=== PATIENT | male | born 1950 | race Caucasian/White ===

== ENCOUNTER 2023-02-08 12:01 | Emergency (ER) | payer MEDICARE, SELFPAY ==
[2023-02-08 12:14] VITALS: BP 160/96; PULSE 93; RESP 20; TEMP 36.7; O2SAT 97
--- NOTE | 2023-02-08 12:23 | ED.SKABFB ---
HPI - Skin/Abscess/Foreign Bdy General Chief complaint: Skin/Abscess/Foreign Body Stated complaint: Rash Back of Lt Leg Time Seen by Provider: 02/08/23 12:23 Source: patient Mode of arrival: ambulatory Limitations: no limitations History of Present Illness HPI narrative: 72-year-old male presents with complaint of dry, itchy area to posterior aspect of left leg. Patient reports has had symptoms for approximately 1 month. Was scratching with his right toe about a month ago and then got a red swollen bump. Has since resolved but continues to have rash. Is concerned for infection. Has not seen his primary care physician or equipment service engineer for this problem. All systems reviewed and negative except as noted above. Related Data Home Medications Medication Instructions Recorded Confirmed levothyroxine 112 mcg tablet mcg 02/08/23 losartan 100 mg tablet mg 02/08/23 meloxicam 7.5 mg tablet mg 02/08/23 omeprazole 40 mg capsule,delayed mg 02/08/23 release rosuvastatin 10 mg tablet mg 02/08/23 tamsulosin 0.4 mg capsule mg PO 02/08/23 Allergies Allergy/AdvReac Type Severity Reaction Status Date / Time No Known Allergies Allergy Verified 01/14/18 08:15 Review of Systems Review of Systems: CONSTITUTIONAL: Denies fever, chills, or sweats. EYES: Denies visual changes, redness, or discharge. ENT: Denies rhinorrhea, congestion, sore throat, or otalgia. CARDIOVASCULAR: Denies chest pain, palpitations, or edema. RESPIRATORY: Denies cough or dyspnea. GASTROINTESTINAL: Denies abdominal pain, nausea, vomiting, or diarrhea. GENITOURINARY: Denies dysuria or hematuria. SKIN: Reports rash and itching left posterior leg.. MUSCULOSKELETAL: Denies back pain, joint pain, or myalgia. NEUROLOGIC: Denies headache, numbness, or weakness. PSYCHIATRIC: Denies anxiety or depression. All other systems reviewed are negative, except as documented in HPI. PMFSH Comments At time of signature, agree with nursing past medical, surgical, social and family history. There is no relevant family history pertinent to the presenting complaint. Exam Narrative: GENERAL: This is a well-nourished, well-developed patient, in no apparent distress. HEAD: normocephalic, atraumatic. EYES: PERRL. Sclera clear/white. Vision is grossly intact. EARS: External ears normal. NOSE: External nose normal NECK: Neck supple, non-tender without lymphadenopathy, masses or thyromegaly. CARDIOVASCULAR: Regular rate and rhythm without murmurs, gallops, or rubs. RESPIRATORY: Clear to auscultation. Breath sounds equal bilaterally. No wheezes, rales, or rhonchi. SKIN: warm, Dry, intact with no suspicious lesions , good texture and turgor. scaly, patchy rash to posterior aspect L ankle and heel. very mild erythema. no warmth, swelling or tenderness on palpation. skin intact, no drainage. no signs of infection. NEURO: awake, alert, and oriented to person, place and time. There were no obvious focal neurologic abnormalities. EXTREMITIES: No joint tenderness, effusion, or edema noted. Course Course Level of Care: Express Care Visit Vital Signs Vital signs: Vital Signs Temperature 36.7 C 02/08/23 12:14 Pulse Rate 93 02/08/23 12:14 Respiratory Rate 20 02/08/23 12:14 Blood Pressure 160/96 H 02/08/23 12:14 Pulse Oximetry 97 02/08/23 12:14 Oxygen Delivery Room Air 02/08/23 12:14 Temperature 36.7 C 02/08/23 12:14 Pulse Rate 93 02/08/23 12:14 Respiratory Rate 20 02/08/23 12:14 Blood Pressure 156/96 H 02/08/23 12:39 Pulse Oximetry 97 02/08/23 12:14 Oxygen Delivery Room Air 02/08/23 12:14 reviewed MDM - Skin/Abscess/Foreign Bdy MDM Narrative Medical decision making narrative: Patient is aware of diagnosis, understands and agrees to treatment plan. Anticipatory guidance given. Patient agrees to follow-up as directed and is aware of reasons to seek care at the emergency department. Portions of this record may have
[2023-02-08 12:39] VITALS: BP 156/96
== END 2023-02-08 12:39 | disposition home or self-care (01) ==
PROVIDERS: Emergency Provider Nurse Practitioner Family
DX: L30.9 Dermatitis, unspecified (principal)
CPT/HCPCS: 99213; G0463

== ENCOUNTER 2024-06-01 18:45 | Emergency (ER) | payer MEDICARE, SELFPAY ==
--- NOTE | 2024-06-01 18:51 | ED.URI ---
HPI - URI/Sore Throat General Chief Complaint: Upper Respiratory Infection Stated Complaint: Cough/Sinus Time Seen by Provider: 06/01/24 18:52 Source: patient Mode of arrival: ambulatory Limitations: no limitations History of Present Illness HPI Narrative: Solomon is a 74-year-old male patient presenting to the clinic today with complaints of productive cough, sore throat, sinus congestion, and runny nose x2 days. He reports that he coughed up some green phlegm today but his nasal drainage is clear. He denies any fever, chills, or body aches. He denies any shortness of breath or chest pain. MD elicited complaint: cough, sore throat, rhinorrhea and nasal congestion Related Data Home Medications Medication Instructions Recorded Confirmed levothyroxine 112 mcg tablet mcg 02/08/23 losartan 100 mg tablet mg 02/08/23 meloxicam 7.5 mg tablet mg 02/08/23 omeprazole 40 mg capsule,delayed mg 02/08/23 release rosuvastatin 10 mg tablet mg 02/08/23 tamsulosin 0.4 mg capsule mg PO 02/08/23 hydrochlorothiazide 12.5 mg tablet 12.5 mg DAILY 06/01/24 06/01/24 Allergies Allergy/AdvReac Type Severity Reaction Status Date / Time No Known Allergies Allergy Verified 06/01/24 19:01 Review of Systems Review of Systems: Pertinent positives per HPI. Patient denies any fever, chills, rash, headache, visual changes, dizziness, cough, shortness of breath, chest pain, palpitations, nausea, vomiting, diarrhea, constipation, abdominal pain, or any urinary issues. PMFSH Comments At the time of my signature, I reviewed and agree with the nursing past medical, surgical, social, and family history. There is no relevant family history pertinent to the patient complaint. Exam Narrative: General: Well-developed, well nourished, in no apparent distress Head: Normocephalic, atraumatic Eyes: Pupils equally round and reactive to light bilaterally, EOM intact, sclera and conjunctive clear, no discharge, lids normal Ears: TMs intact and clear, ear canals clear, no drainage, grossly hearing normal. Nose: Nares patent, no discharge, no inflammation, no sinus tenderness. Mouth: Oral pharynx without lesions or masses, good dentition, MMM. Neck: Supple, trachea midline, no enlargement of anterior or posterior cervical nodes, no thyroid masses or goiter palpable. Cardio: Regular rate and rhythm, s1 and s2 normal, no murmur appreciated. Resp: Clear to auscultation bilaterally, no rhonchi, rales, wheezing or rubs Course Course Emergency Course: Portions of this record may have been created with voice recognition software. Level of Care: Express Care Visit Vital Signs Vital signs: Vital signs reviewed MDM - URI/Sore Throat MDM Narrative Medical decision making narrative: At the time of visit patient is resting comfortably on the exam table. Patient appears to be nontoxic. Labs: Strep test was negative in the clinic today. We will send strep for culture. Plan: I suspect patient has URI, pharyngitis, viral syndrome. Prescription for prednisone and Tessalon Perles was sent to the pharmacy. May take Mucinex strain today time and take Tessalon Perles and I to help him sleep. Supportive measures were discussed with the patient and they voiced understanding discharge instructions and agrees to treatment plan. Return precautions reviewed Differential Diagnosis Differential diagnosis: Likely upper respiratory infection, otitis media, sinusitis, viral infection, bronchitis, influenza, pharyngitis and other (COVID) Discharge Plan Discharge Clinical Impression: Viral infection Upper respiratory infection Qualifiers: URI type: unspecified URI Qualified Code(s): J06.9 - Acute upper respiratory infection, unspecified Pharyngitis Qualifiers: Pharyngitis/tonsillitis etiology: unspecified etiology Qualified Code(s): J02.9 - Acute pharyngitis, unspecified Patient Disposition: Home, Self-Care Condition: Stable Instructions:
[2024-06-01 18:55] VITALS: BP 133/70; PULSE 102; RESP 20; TEMP 37; O2SAT 97
[2024-06-01 19:28] LABS: EDSTREPNEGPOS1 Negative (Negative)
== END 2024-06-01 19:30 | disposition home or self-care (01) ==
PROVIDERS: Emergency Provider Nurse Practitioner Family
DX: B34.9 Viral infection, unspecified (principal); J06.9 Acute upper respiratory infection, unspecified; J02.9 Acute pharyngitis, unspecified; E78.00 Pure hypercholesterolemia, unspecified; K21.9 Gastro-esophageal reflux disease without esophagitis; M19.90 Unspecified osteoarthritis, unspecified site; E03.9 Hypothyroidism, unspecified
CPT/HCPCS: 87081; 87880; 99213; G0463

== ENCOUNTER 2024-06-08 13:40 | Emergency (ER) | payer MEDICARE, SELFPAY ==
[2024-06-08 15:03] VITALS: BP 124/81; PULSE 98; RESP 18; TEMP 36.7; O2SAT 97
--- NOTE | 2024-06-08 16:03 | ED.URI ---
HPI - URI/Sore Throat General Chief Complaint: Upper Respiratory Infection Stated Complaint: upper respiratory infection Time Seen by Provider: 06/08/24 16:03 Source: patient, RN notes reviewed and old records reviewed Mode of arrival: ambulatory Limitations: no limitations History of Present Illness HPI Narrative: patient presents with complaints of 4-5 weeks of sinus pain and congestion. He reports that he has tried [id number] medications, prednisone, Zyrtec, humidifier. Reports that despite his best efforts symptoms are getting worse instead of better. He does report after he took prescription prednisone he had a couple days of feeling better, now feels worse than did at the onset of illness. He does not have fever, but does report some excessive tiredness. Denies all injury and trauma. Voices no other concerns or complaints at this time Related Data Home Medications Medication Instructions Recorded Confirmed levothyroxine 112 mcg tablet 112 mcg DIRECTED 02/08/23 06/08/24 losartan 100 mg tablet 100 mg DIRECTED 02/08/23 06/08/24 meloxicam 7.5 mg tablet 7.5 mg DIRECTED 02/08/23 06/08/24 omeprazole 40 mg capsule,delayed 40 mg DIRECTED 02/08/23 06/08/24 release rosuvastatin 10 mg tablet 10 mg DIRECTED 02/08/23 06/08/24 tamsulosin 0.4 mg capsule 0.4 mg PO DIRECTED 02/08/23 06/08/24 hydrochlorothiazide 12.5 mg tablet 12.5 mg DAILY 06/01/24 06/08/24 Allergies Allergy/AdvReac Type Severity Reaction Status Date / Time No Known Allergies Allergy Verified 06/08/24 15:05 Review of Systems Review of Systems: All systems reviewed & are unremarkable except as noted in HPI and below Constitutional: Constitutional: Reports as per HPI and Reports no additional constitutional complaints ENT: Reports system reviewed and no additional complaints, except as documented, Reports as per HPI, Reports nasal congestion, Reports nasal discharge, Reports sinus pain, Reports sinus pressure and Reports sore throat Cardiovascular: Cardiovascular: Reports no additional cardiovascular complaints Respiratory: Respiratory: Reports no additional respiratory complaints Gastrointestinal: Gastrointestinal: Reports no additional gastrointestinal complaints PMFSH Comments At the time of my signature, I reviewed and agree with the nursing past medical, surgical, social, and family history. There is no relevant family history pertinent to the patient complaint. Exam Const: General: cooperative, no acute distress, alert and awake Orientation/consciousness: oriented to person, oriented to place and oriented to time HENMT: Head: normal to inspection Ears: TM's normal bilaterally Face/Nose/Sinus: Abnormal mucous membranes and turbinates present boggy bilateral and erythematous bilateral and sinus tenderness Mouth: Yes moist mucous membranes Throat: posterior oropharynx abnormal erythema and postnasal drainage Resp: Effort & Inspection: normal respiratory effort and able to speak in complete sentences Auscultation: clear to auscultation bilaterally, no crackles, no rales, no rhonchi and no wheezes Cardio: Palpation: normal PMI Rate: regular rate Rhythm: regular rhythm Heart sounds: S1 normal heart sound present and S2 normal heart sound present Neuro: General: oriented to person, oriented to place and oriented to time Cranial nerves: Yes CN's II-XII intact bilaterally Psych: Appearance: grossly normal Thought process: Normal thought process present Insight: Good insight present (Psych) Judgement: Good judgement present (Psych) Course Course Level of Care: Express Care Visit Vital Signs Vital signs: Vital Signs Temperature 98.1 F 06/08/24 15:03 Pulse Rate 98 06/08/24 15:03 Respiratory Rate 18 06/08/24 15:03 Blood Pressure 124/81 06/08/24 15:03 Pulse Oximetry 97 06/08/24 15:03 Oxygen Delivery Room Air 06/08/24 15:03 Temperature 98.1 F 06/08/24 15:03 Pulse Rate 98 06/08/24 15:03 R
== END 2024-06-08 16:20 | disposition home or self-care (01) ==
PROVIDERS: Emergency Provider Nurse Practitioner Family
DX: J01.10 Acute frontal sinusitis, unspecified (principal); E78.00 Pure hypercholesterolemia, unspecified; I10 Essential (primary) hypertension; K21.9 Gastro-esophageal reflux disease without esophagitis; M19.90 Unspecified osteoarthritis, unspecified site; E03.9 Hypothyroidism, unspecified
CPT/HCPCS: 99213; G0463